=== PATIENT | female | born 1940 | race African-American/Black ===

== ENCOUNTER 2022-05-28 10:22 | Inpatient (IN) | payer MEDICARE, MEDICAID ==
[~2022-05-28] VITALS: Ht 157.5 cm; Wt 62.8 kg
[~2022-05-28 10:22] MED LIST: CRES10 PO; DEXL60CA3 PO; NEBI10TA2 PO; OLME20TA13 PO
[2022-05-28] MEDS ORDERED: MORPHINE SULFATE 4 MG/ML CPJ (NOT FOR IM USE) IV STA (10:48)
[2022-05-28 13:18] LABS: BASOPHILS % 0.2 % (0.0-2.0); EOSINOPHILS % 0.1 % (0.0-5.0); HEMATOCRIT. 31.1 % (36.0-48.0); HEMOGLOBIN. 10.6 g/dL (12.0-16.0); LYMPHOCYTES % 10.6 % (20.0-50.0); MEAN CORPUSCULAR HEMOGLOBIN 30.9 pg (28.0-32.0); MEAN CORPUSCULAR VOLUME 90.3 fL (81.0-99.0); MEAN PLATELET VOLUME 8.9 fl (7.4-10.4); MONOCYTES % 9.2 % (2.0-8.0); NEUTROPHILS % 79.9 % (40.0-76.0); PLATELET 201 x1000/uL (130-400); RED BLOOD CELL COUNT 3.45 mill/uL (4.2-5.4); RED CELL DISTRIBUTION WIDTH 12.3 % (11.6-14.6)
[2022-05-28 13:20] LABS: CHLORIDE 100 mEq/L (98-107)
[2022-05-28 13:22] LABS: INR 1.1; PROTHROMBIN TIME 11.9 sec (9.6-11.0)
[2022-05-28] MEDS ORDERED: ZOLPIDEM TARTRATE 5MG TABLET PO PRN (15:00)
[2022-05-28] MEDS ORDERED: CLONIDINE 0.1MG TABLET PO PRN (15:00)
[2022-05-28] MEDS ORDERED: ONDANSETRON HCL 4MG/2ML INJ IV PRN (15:00)
[2022-05-28] MEDS ORDERED: NALOXONE HCL 0.4MG/ML VIAL IV PRN (15:00)
[2022-05-28] MEDS ORDERED: MORPHINE SULFATE 2 MG/ML CPJ (NOT FOR IM USE) IV PRN (15:00)
[2022-05-28] MEDS ORDERED: ACETAMINOPHEN 325MG TABLET PO PRN ×2 (15:00)
[2022-05-28] MEDS: SODIUM CHLORIDE 0.9% 1,000 ML IV SCH ×2 (15:00→15:30)
[2022-05-28] MEDS ORDERED: DIPHENHYDRAMINE 50MG/ML VIAL IV PRN (15:00)
[2022-05-28] MEDS ORDERED: KETOROLAC 30MG/ML VIAL IV PRN (15:15)
[2022-05-28] MEDS ORDERED: BISACODYL 5MG TABLET PO NR (19:45)
[2022-05-28] MEDS ORDERED: SORBITOL 70% SOLN 30ML PO NR (19:45)
[2022-05-28] MEDS ORDERED: NA PHOS,M-B/NA PHOS,DI-BA ENEMA 118ML PR NR (19:45)
[2022-05-28 20:00] VITALS: BP 118/82
[2022-05-29] VITALS (7 sets, daily range): BP systolic 100–161; BP diastolic 55–84
[2022-05-29] MEDS: ATORVASTATIN CALCIUM 10MG TABLET PO SCH ×2 (02:09→23:41)
[2022-05-29 09:45] LABS: HEMATOCRIT. 33.1 % (36.0-48.0); HEMOGLOBIN. 11.1 g/dL (12.0-16.0); MEAN CORPUSCULAR HEMOGLOBIN 30.6 pg (28.0-32.0); MEAN CORPUSCULAR VOLUME 91.4 fL (81.0-99.0); MEAN PLATELET VOLUME 9.4 fl (7.4-10.4); PLATELET 208 x1000/uL (130-400); RED BLOOD CELL COUNT 3.63 mill/uL (4.2-5.4); RED CELL DISTRIBUTION WIDTH 12.5 % (11.6-14.6)
[2022-05-29 10:00] LABS: CHLORIDE 107 mEq/L (98-107)
[2022-05-29] MEDS: NEBIVOLOL HCL 5 MG TABLET PO SCH (10:04)
[2022-05-29] MEDS: LOSARTAN POTASSIUM 25 MG TABLET PO SCH (10:05)
[2022-05-29] MEDS: PANTOPRAZOLE SODIUM 40 MG/VIAL IV SCH (10:05)
[2022-05-29] MEDS ORDERED: POTASSIUM CHLORIDE 20MEQ TABLET SR PO NR (14:15)
[2022-05-29 14:43] LABS: PLATELET ESTIMATE NORMAL
[2022-05-29] MEDS: SODIUM CHLORIDE 0.9% 1,000 ML IV SCH (21:00)
[2022-05-30] VITALS: BP 102/56
[2022-05-30 04:00] VITALS: BP 110/58
[2022-05-30] MEDS: SODIUM CHLORIDE 0.9% 1,000 ML IV SCH (07:00)
[2022-05-30 08:00] VITALS: BP 126/62
[2022-05-30] MEDS: LOSARTAN POTASSIUM 25 MG TABLET PO SCH (08:51)
[2022-05-30] MEDS: NEBIVOLOL HCL 5 MG TABLET PO SCH (08:51)
[2022-05-30] MEDS: PANTOPRAZOLE SODIUM 40 MG/VIAL IV SCH (08:51)
[2022-05-30 09:50] VITALS: BP 126/62
[2022-06-01 04:09] LABS: OVA & PARASITE EXAM Final report (.)
== END 2022-05-30 10:02 | disposition home or self-care (01) | DRG 390 ==
LOC: ER 12:32 → 6EST 13:39 → EDBEDREQ 13:43 → EDBEDREQSVC 15:25 → ENRESERV 19:40
PROVIDERS: ADMIT Internal Medicine; ATTEND Internal Medicine
DX: K56.41 Fecal impaction (principal); K80.20 Calculus of gallbladder without cholecystitis without obstruction; R16.0 Hepatomegaly, not elsewhere classified; Z20.822 Contact with and (suspected) exposure to COVID-19; E78.00 Pure hypercholesterolemia, unspecified; I10 Essential (primary) hypertension; E78.5 Hyperlipidemia, unspecified; D18.00 Hemangioma unspecified site; K21.9 Gastro-esophageal reflux disease without esophagitis; M19.90 Unspecified osteoarthritis, unspecified site; K76.89 Other specified diseases of liver; N32.81 Overactive bladder; Z96.652 Presence of left artificial knee joint; R15.9 Full incontinence of feces; R41.89 Other symptoms and signs involving cognitive functions and awareness; Z79.899 Other long term (current) drug therapy; Z90.710 Acquired absence of both cervix and uterus
CPT/HCPCS: 36415; 74176; 76700; 80053; 82270; 83735; 84100; 85025; 87015; 87045; 87177; 87209; 87426; 87427; 87449; 87493; 99285; C9113; J1885; J2270

== ENCOUNTER 2023-01-27 06:56 | Inpatient (IN) | payer OTHER, MEDICAID ==
[~2023-01-27] VITALS: Ht 157.5 cm; Wt 57.2 kg
[2023-01-27] MEDS ORDERED: IPRATROPIUM BROMIDE (0.02%) 0.5MG/2.5ML NEB HHN STA (07:22)
[2023-01-27] MEDS ORDERED: ALBUTEROL (0.083%) 2.5MG/3ML NEB HHN STA (07:22)
[2023-01-27] MEDS ORDERED: ASPIRIN 81MG TABLET PO ONE (07:30)
[2023-01-27 08:12] LABS: BASOPHILS % 0.9 % (0.0-2.0); EOSINOPHILS % 0.7 % (0.0-5.0); HEMATOCRIT. 32.7 % (36.0-48.0); HEMOGLOBIN. 11.3 g/dL (12.0-16.0); LYMPHOCYTES % 10.6 % (20.0-50.0); MEAN CORPUSCULAR HEMOGLOBIN 31.6 pg (28.0-32.0); MEAN CORPUSCULAR VOLUME 91.8 fL (81.0-99.0); MEAN PLATELET VOLUME 9.8 fl (7.4-10.4); MONOCYTES % 6.1 % (2.0-8.0); NEUTROPHILS % 81.7 % (40.0-76.0); PLATELET 231 x1000/uL (130-400); RED BLOOD CELL COUNT 3.56 mill/uL (4.2-5.4); RED CELL DISTRIBUTION WIDTH 12.5 % (11.6-14.6)
[2023-01-27 08:18] LABS: CHLORIDE 104 mEq/L (98-107)
[2023-01-27 08:27] LABS: D-DIMER 6.09 mg/L FEU (<0.50); INR 1.2; PARTIAL THROMBOPLASTIN TIME 23.6 sec (23.4-31.0); PROTHROMBIN TIME 12.5 sec (9.6-11.0)
[2023-01-27 08:52] LABS: BG BASE EXCESS -1.2 mmol/L (-2.0-2.0); BG CARBOXYHEMOGLOBIN 0.2 % (0.5-1.5); BG DEOXYHEMOGLOBIN 1.9 % (0.0-5.0); BG FRACTION INSPIRED OXYGEN 50; BG HCO3 ACT 22.8 mmol/L (22.0-26.0); BG METHEMOGLOBIN 0.2 % (0.0-1.5); BG OXYGEN SATURATION 98.1 % (92.0-98.5); BG OXYHEMOGLOBIN 97.7 % (94.0-97.0); BG PCO2 35.4 mmHg (35.0-45.0); BG PH 7.426 (7.350-7.450); BG PO2 107.1 mmHg (75.0-100.0); BG SAMPLE SITE RIGHT BRACHIAL; BG TOTAL HEMOGLOBIN 12.2 g/dL (12.0-18.0); BG VENT MODE MASK - BIPAP
[2023-01-27] MEDS ORDERED: FUROSEMIDE 40MG/4ML VIAL IVP ONE (09:00)
[2023-01-27] MEDS ORDERED: AZITHROMYCIN 500 MG in DEXT 5% WATER 250 ML IV SCH ×2 (09:00→09:30)
[2023-01-27] MEDS ORDERED: ACETAMINOPHEN 325MG TABLET PO PRN (15:45)
[2023-01-27] MEDS ORDERED: ONDANSETRON HCL 4MG/2ML INJ IV PRN (15:45)
[2023-01-27] MEDS: ENOXAPARIN 40MG/0.4ML SYR SUBCUT SCH (16:26)
[2023-01-27] MEDS ORDERED: IOHEXOL-350 100 ML BOTTLE ONE (23:01)
[2023-01-27 23:21] VITALS: BP 148/83
[2023-01-27] MEDS ORDERED: CRES10 PO (23:42)
[2023-01-27] MEDS ORDERED: CYCL30DR EACHEYE (23:42)
[2023-01-27] MEDS ORDERED: FERR-63 PO (23:42)
[2023-01-28] VITALS: BP 148/83
[2023-01-28 04:00] VITALS: BP 142/74
[2023-01-28] MEDS ORDERED: LORAZEPAM 2MG/ML CPJ IV PRN (06:15)
[2023-01-28] MEDS ORDERED: HALOPERIDOL LACTATE 5MG/ML VIAL IM NR (06:56)
[2023-01-28 08:00] VITALS: BP 145/63
[2023-01-28] MEDS ORDERED: IPRATROPIUM/ALBUTEROL 0.5-3(2.5)MG/3ML NEB HHN PRN (11:30)
[2023-01-28 12:00] VITALS: BP 145/85
[2023-01-28] MEDS: FUROSEMIDE 40MG/4ML VIAL IVP SCH (13:02)
[2023-01-28 16:00] VITALS: BP 134/74
[2023-01-28 16:04] LABS: BASOPHILS % 1.4 % (0.0-2.0); EOSINOPHILS % 1.1 % (0.0-5.0); HEMATOCRIT. 34.4 % (36.0-48.0); HEMOGLOBIN. 11.8 g/dL (12.0-16.0); LYMPHOCYTES % 17.6 % (20.0-50.0); MEAN CORPUSCULAR HEMOGLOBIN 31.6 pg (28.0-32.0); MEAN CORPUSCULAR VOLUME 91.9 fL (81.0-99.0); MEAN PLATELET VOLUME 9.6 fl (7.4-10.4); MONOCYTES % 10.5 % (2.0-8.0); NEUTROPHILS % 69.4 % (40.0-76.0); PLATELET 227 x1000/uL (130-400); RED BLOOD CELL COUNT 3.74 mill/uL (4.2-5.4); RED CELL DISTRIBUTION WIDTH 12.6 % (11.6-14.6)
[2023-01-28 16:42] LABS: CHLORIDE 104 mEq/L (98-107); CREATINE KINASE 168 IU/L (26-192); CREATINE KINASE MB FRACTION 6.1 ng/mL (0.5-3.6)
[2023-01-28] MEDS: ENOXAPARIN 40MG/0.4ML SYR SUBCUT SCH (17:51)
[2023-01-28 20:00] VITALS: BP 128/66
[2023-01-29] VITALS (7 sets, daily range): BP systolic 128–142; BP diastolic 66–74
[2023-01-29] MEDS: FUROSEMIDE 40MG/4ML VIAL IVP SCH (09:47)
[2023-01-29] MEDS ORDERED: FERR-63 PO (15:40)
[2023-01-29] MEDS ORDERED: CYCL30DR EACHEYE (15:40)
[2023-01-29] MEDS ORDERED: DEXL60CA3 PO (15:40)
[2023-01-29] MEDS ORDERED: NEBI10TA2 PO (15:40)
[2023-01-29] MEDS ORDERED: OLME20TA13 PO (15:40)
[2023-01-29] MEDS ORDERED: CRES10 PO (15:40)
[2023-01-29] MEDS ORDERED: FURO-151 MT (15:40)
[2023-01-29] MEDS: ENOXAPARIN 30MG/0.3ML SYR SUBCUT SCH (18:35)
[2023-01-30] VITALS: BP 129/76
[2023-01-30 04:00] VITALS: BP 132/75
[2023-01-30] MEDS: FUROSEMIDE 40MG/4ML VIAL IVP SCH (08:28)
[2023-01-30 08:30] VITALS: BP 144/82
[2023-01-30 12:00] VITALS: BP 128/73
[2023-01-30 16:00] VITALS: BP 132/72
[2023-01-30] MEDS: ENOXAPARIN 30MG/0.3ML SYR SUBCUT SCH (18:32)
[2023-01-30 20:00] VITALS: BP 135/74
[2023-01-31] VITALS: BP 135/67
[2023-01-31 04:00] VITALS: BP 125/65
[2023-01-31 07:08] LABS: VITAMIN B12 SERUM 1889 pg/mL (211-911)
[2023-01-31 07:53] VITALS: BP 105/75
[2023-01-31] MEDS: FUROSEMIDE 40MG/4ML VIAL IVP SCH (08:49)
[2023-01-31 11:39] VITALS: BP 148/83
== END 2023-01-31 11:55 | disposition home or self-care (01) | DRG 189 ==
LOC: ER 06:56 → 7EST 09:45 → EDBEDREQSVC 17:51 → ENRESERV 21:06
PROVIDERS: ADMIT Internal Medicine; ATTEND Internal Medicine
PROC: 4A10X4Z Monitoring of Central Nervous Electrical Activity, External Approach (ICD-10-PCS; principal; 2023-01-31)
DX: J96.01 Acute respiratory failure with hypoxia (principal); J81.1 Chronic pulmonary edema; J90 Pleural effusion, not elsewhere classified; I11.9 Hypertensive heart disease without heart failure; E78.5 Hyperlipidemia, unspecified; E11.9 Type 2 diabetes mellitus without complications; R79.89 Other specified abnormal findings of blood chemistry; Z20.822 Contact with and (suspected) exposure to COVID-19; Z79.899 Other long term (current) drug therapy
CPT/HCPCS: 36415; 36600; 71045; 71275; 80053; 80061; 82375; 82550; 82553; 82607; 82805; 83036; 83605; 83880; 84443; 84484; 85025; 85379; 86850; 86900; 87426; 87804; 93005; 93306; 94640; 94660; 95816; 99291; C9803; J0456; J1630; J1650; J1940; J2060; J7060; Q9967